=== PATIENT | male | born 1975 | race Hispanic/Latino ===

== ENCOUNTER 2016-07-04 10:20 | Emergency (ER) | payer BC ==
[2016-07-04 10:54] VITALS: BP 124/87
[2016-07-04] MEDS ORDERED: MORPHINE IV ONE ×2 (11:00→13:37)
[2016-07-04] MEDS ORDERED: NACL 0.9% 1000 ML IV ONE (11:00)
[2016-07-04] MEDS ORDERED: TORADOL IV ONE (11:00)
[2016-07-04] MEDS ORDERED: ZOFRAN IV ONE ×2 (11:03→13:37)
--- NOTE | 2016-07-04 11:03 | Emergency Department Report ---
Chief Complaint: Abdominal Pain Stated Complaint: POSS KIDNEY STONE/VOMITING Time Seen by Provider: 07/04/16 10:58 - HPI History of Present Illness: 40-year-old male comes in with complaint of left sided flank pain. Patient reports he has a history of kidney stones and this feels just like one. Patient reports that he's had surgical intervention with stents placed but still having any stones. Patient denies any fever he is complaints of sweaty and nausea. - Exam Vital Signs: Vital Signs 07/04/16 10:50 Temperature 97.5 F L Pulse Rate 72 Respiratory 22 Rate Blood Pressure 124/87 O2 Sat by Pulse 100 Oximetry Physical Exam: Patient is alert and oriented 3. He does appear to be in acute distress secondary to pain. He is diaphoretic. Cardiac regular rate and rhythm respiratory clear to auscultation flank tenderness. MSE screening note: Focused history and physical exam performed. Due to findings the following was ordered: Patient's been evaluated by this provider.. CBC CMP and UA, CT of pelvic IV insertion normal saline and morphine 2 mg Zofran 4 mg Toradol 30 mg IV. Patient be evaluated the main ER. ED Disposition for MSE Condition: Stable
[2016-07-04 11:43] LABS: Hematocrit 49.3 % (35.5-45.6); Hemoglobin 16.8 gm/dl (11.8-15.2); Mean Corpuscular HGB Conc 34 % (32-34); Mean Corpuscular Hemoglobin 31 pg (28-32); Mean Corpuscular Volume 91 fl (84-94); Platelet Count 205 K/mm3 (140-440); Red Blood Count 5.44 M/mm3 (3.65-5.03); Red Cell Distribution Width 12.8 % (13.2-15.2); White Blood Count 7.6 K/mm3 (4.5-11.0)
--- NOTE | 2016-07-04 11:44 | Cat Scan Report ---
CT OF THE ABDOMEN AND PELVIS WITHOUT CONTRAST HISTORY: Left flank pain. TECHNIQUE: Helical CT without contrast. Sagittal and coronal reformatted images. FINDINGS: A 2 mm calculus is identified in the distal left ureter 1 cm from the left UVJ. There is minimal left hydronephrosis. A 2 mm calyceal stone is identified in the mid left kidney. 1 or 2 punctate calcifications are identified in the right kidney. No right ureteral stones. Within the limits of a noncontrast exam, the remaining abdominal and pelvic viscera are within normal limits. The liver, biliary system, pancreas, spleen, adrenal glands and bladder are unremarkable. The bowel loops are normal caliber and wall thickness. Normal appendix. The aorta is normal caliber. No ascites, bulky adenopathy or inflammatory changes. The lung bases are clear. Normal heart size. No suspicious bony lesion. IMPRESSION: Bilateral nephrolithiasis as described.
[2016-07-04 11:48] LABS: Anion Gap 20 mmol/L; BUN/Creatinine Ratio 14.54; Blood Urea Nitrogen 16 mg/dL (9-20); Calcium 9.5 mg/dL (8.4-10.2); Carbon Dioxide 23 mmol/L (22-30); Chloride 99.2 mmol/L (98-107); Glucose 121 mg/dL (75-100); Potassium 4.2 mmol/L (3.6-5.0); Sodium 138 mmol/L (137-145)
[2016-07-04 13:29] LABS: Bilirubin,Urine NEG (Negative); Blood,Urine LG (Negative); Ketones,Urine TR mg/dL (Negative); Leukocyte Esterase,Urine TR (Negative); Mucus,Urine 3+ /HPF; Nitrite,Urine NEG (Negative); RBC,Urine > 182.0 /HPF (0.0-6.0); Urobilinogen,Urine < 2.0 mg/dL (<2.0)
--- NOTE | 2016-07-04 15:09 | Emergency Department Report ---
ED Abdominal Pain HPI - General Chief Complaint: Abdominal Pain Stated Complaint: POSS KIDNEY STONE/VOMITING Time Seen by Provider: 07/04/16 10:58 Source: patient, family Mode of arrival: Ambulatory Limitations: No Limitations - History of Present Illness Initial Comments: PT c/o L flank pain, onset this am at 0830 when pt woke up. PT states he had to have a kidney stone blasted in February that was 15 mm. PT states he did vomit this am. -: Gradual Time: 08:30 Location: L flank Radiation: none Severity scale (0 -10): 8 Quality: stabbing Consistency: constant - Related Data Allergies Allergy/AdvReac Type Severity Reaction Status Date / Time No Known Allergies Allergy Unverified 07/04/16 10:54 ED Review of Systems ROS: Stated complaint: POSS KIDNEY STONE/VOMITING Other details as noted in HPI Comment: All other systems reviewed and negative Constitutional: diaphoresis Endocrine: excessive sweating (during acute pain ) Gastrointestinal: abdominal pain, nausea, vomiting Genitourinary: hematuria. 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 Absent: respiratory distress - Cardiovascular Cardiovascular Exam: Present: regular rate, normal rhythm, normal heart sounds - GI/Abdominal GI/Abdominal exam: Present: soft. Absent: tenderness - Extremities Exam Extremities exam: Present: normal inspection, full ROM - Back Exam Back exam: Present: normal inspection, other (Pt reports pain to L lower back ) . Absent: CVA tenderness (L) - Neurological Exam Neurological exam: Present: alert, oriented X3 - Psychiatric Psychiatric exam: Present: normal affect, normal mood - Skin Skin exam: Present: warm, dry, intact ED Course Vital Signs 07/04/16 10:50 Temperature 97.5 F L Pulse Rate 72 Respiratory 22 Rate Blood Pressure 124/87 O2 Sat by Pulse 100 Oximetry - Reevaluation(s) Reevaluation #1: 07/04/16 15:06 PT states he was feeling much better after initial pain medication, however, pain was returning. PT given repeat dose of Morphine. PT states he is feeling much better. PT aware of CT scan results and need to follow up with Urology. PT states he has strainer at home. - Pulse Oximetry Interpretation Digit-Finger Initial Pulse Oximetry Readin Actions Taken: none ED Medical Decision Making - Lab Data Result diagrams: 07/04/16 11:12 07/04/16 11:12 - Radiology Data Radiology results: report reviewed CT ABD/ Pelvis - kevin non obstructing kidney stones - Differential Diagnosis renal colic, flank pain Critical Care Time: No Critical care attestation.: If time is entered above; I have spent that time in minutes in the direct care of this critically ill patient, excluding procedure time. ED Disposition Clinical Impression: Left flank pain, Left nephrolithiasis Nausea & vomiting Qualifiers: Vomiting type: unspecified Vomiting Intractability: non-intractable Qualified Code(s): R11.2 - Nausea with vomiting, unspecified Disposition: DISCHARGED TO HOME OR SELFCARE Is pt being admited?: No Does the pt Need Aspirin: No Condition: Stable Additional Instructions: Call your Urologist in the morning Strain your urine Return to ED if worsening or concerns no driving or ETOH after narcotic pain medication Referrals: PRIMARY MD DENI [Primary Care Provider] - 3-5 Days Time of Disposition: 15:11
== END 2016-07-04 15:31 | disposition home or self-care (01) ==
LOC: ED 10:20
DX: N20.0 Calculus of kidney (principal); R11.2 Nausea with vomiting, unspecified; R10.9 Unspecified abdominal pain; F17.200 Nicotine dependence, unspecified, uncomplicated
CPT/HCPCS: 36415; 74176; 80048; 81001; 85027; 87086; 96361; 96374; 96375; 96376; 99284; J1885; J2270; J2405; J7030

== ENCOUNTER 2021-07-30 13:48 | Outpatient (CLI) | payer BC ==
--- NOTE | 2021-07-30 15:28 | Cat Scan Report ---
CT ABDOMEN AND PELVIS WITHOUT CONTRAST INDICATION / CLINICAL INFORMATION: CALCULUS OF KIDNEY N20.0. TECHNIQUE: Axial CT images were obtained through the abdomen and pelvis without IV contrast. All CT scans at this location are performed using CT dose reduction for ALARA by means of automated exposure control. COMPARISON: None available. FINDINGS: LOWER CHEST: No significant abnormality. LIVER: No significant abnormality. GALLBLADDER: No significant abnormality. BILE DUCTS: No significant abnormality. PANCREAS: No significant abnormality. SPLEEN: No significant abnormality. ADRENALS: No significant abnormality. RIGHT KIDNEY / URETER: There is moderate hydronephrosis secondary to a 6 mm obstructing stone in the distal right ureter at level of right external iliac artery. LEFT KIDNEY / URETER: No significant abnormality. STOMACH / SMALL BOWEL: No significant abnormality. COLON: No significant abnormality. APPENDIX: No significant abnormality. PERITONEUM: No free fluid. No free air. No fluid collection. LYMPH NODES: No significant adenopathy. AORTA / ARTERIES: No significant abnormality. IVC / VEINS: No significant abnormality. URINARY BLADDER: No significant abnormality. REPRODUCTIVE ORGANS: No significant abnormality. ADDITIONAL FINDINGS: None. SKELETAL SYSTEM: Degenerative changes of the spine at L1-L2 with posterior disc bulge/osteophyte. No aggressive osseous lesion. IMPRESSION: 1. Moderate right hydronephrosis secondary to distal obstructing stone. Signer Name: Geremias Osullivan MD Signed: 07/30/2021 3:23 PM Workstation Name: [id number]
== END 2021-07-30 13:49 | disposition home or self-care (01) ==
LOC: CT 13:48
PROVIDERS: ATTEND Urology
DX: N13.39 Other hydronephrosis (principal); N20.0 Calculus of kidney; M47.816 Spondylosis without myelopathy or radiculopathy, lumbar region
CPT/HCPCS: 74176